=== PATIENT | male | born 1950 | race Native Hawaiian/Other Pacific Islander ===

== ENCOUNTER 2018-02-16 10:37 | Outpatient (CLI) | payer OTHER | END 2018-02-16 10:42 | disposition short-term general hospital (02) | LOC: AMB 10:37 | DX: S60.222A Contusion of left hand, initial encounter (principal); W31.89XA Contact with other specified machinery, initial encounter; Y93.89 Activity, other specified; Y92.89 Other specified places as the place of occurrence of the external cause | CPT/HCPCS: A0425; A0427 ==

== ENCOUNTER 2018-02-16 10:45 | Emergency (ER) | payer OTHER ==
[~2018-02-16] VITALS: Ht 175.3 cm; Wt 83.9 kg
[2018-02-16 11:11] LABS: PLATELET COUNT 252 K/uL (142-355)
[2018-02-16 11:21] LABS: POTASSIUM 3.8 mmol/L (3.6-5.2)
[2018-02-16 11:36] VITALS: BP 116/62
== END 2018-02-16 12:01 | disposition short-term general hospital (02) ==
LOC: ED 10:45
PROVIDERS: Family Medicine
DX: S61.211A Laceration without foreign body of left index finger without damage to nail, initial encounter (principal); S61.213A Laceration without foreign body of left middle finger without damage to nail, initial encounter; W45.8XXA Other foreign body or object entering through skin, initial encounter; Y92.69 Other specified industrial and construction area as the place of occurrence of the external cause
CPT/HCPCS: 36415; 80053; 85027; 96361; 96365; 99285; J0690

== ENCOUNTER 2018-11-29 10:44 | Outpatient (CLI) | payer BC ==
[2018-11-29 10:59] LABS: PLATELET COUNT 245 K/uL (142-355)
[2018-11-29 12:06] LABS: POTASSIUM 4.2 mmol/L (3.6-5.2)
== END 2018-11-29 19:14 | disposition home or self-care (01) ==
LOC: LABW 10:44
PROVIDERS: Internal Medicine
DX: N18.2 Chronic kidney disease, stage 2 (mild) (principal); N40.0 Benign prostatic hyperplasia without lower urinary tract symptoms
CPT/HCPCS: 36415; 80053; 81000; 82043; 82306; 82570; 83970; 84153; 85027; 86140